=== PATIENT | male | born 1995 | race Caucasian/White ===

== ENCOUNTER 2017-05-26 23:19 | Emergency (ER) | payer BC, SELFPAY ==
[2017-05-26 23:19] VITALS: BP 120/71; PULSE 104; RESP 16; TEMP 36.9; O2SAT 98; BMI 23.7
--- NOTE | 2017-05-26 23:35 | ED.VISSUMM ---
- ER Visit Summary Date of Service: 05/26/17 Chief Complaint: Right ear pain History of Present Illness: The patient is a 21 M presents to the emergency department right ear pain. Patient has had URI symptoms for about 3 or 4 days. Over the past 2 hours, he said rather progressive pain in his right ear. He describes fullness. He denies any headache, vision change, or fever. He has no history of immunosuppression. Physical Examination: She has erythema, dullness, and bulging of his right TM. There is no perforation. There is no otitis externa. He has no mastoid tenderness. Oropharynx is widely patent. Rest of exam is unremarkable CT sheet. Test Results: [] Emergency Department Course and Treatment: Patient has evidence of acute otitis media. There is no perforation. He has no mastoid tenderness. He will be started on amoxicillin and Naprosyn. He is counseled on supportive care. The patient will be discharged home. Treatment Plan: [] Disposition: Discharge Impression: 1. Right acute otitis media without perforation This note was generated with [employer] dictation software. It may contain incorrect words, spelling, and punctuation that were not noted in review of the chart prior to signing ED Disposition - Plan for ED Patient: Chief Complaint: Ear Problem Instructions: ED Otitis Media Acute Adult Prescriptions: Naproxen [Naprosyn] 500 mg PO BID PRN #20 tab Amoxicillin 500 mg PO TID #30 tab Referrals: Dylan Edwards MD [Primary Care Provider] -
[2017-05-26] MEDS: AMOXICILLIN 500 MG CAPSULE PO (23:45)
[2017-05-26] MEDS: Naproxen 500 MG Tablet PO (23:45)
[2017-05-27 00:06] VITALS: RESP 16
== END 2017-05-27 00:06 | disposition home or self-care (01) ==
LOC: ED 23:54
PROVIDERS: Emergency Provider Emergency Medicine; Family Provider Family Medicine; PCP Family Medicine
DX: H66.91 Otitis media, unspecified, right ear (principal); J02.9 Acute pharyngitis, unspecified
CPT/HCPCS: 99283